=== PATIENT | female | born 1990 | race Caucasian/White ===

== ENCOUNTER 2016-08-19 09:53 | Emergency (ER) | payer OTHER ==
[~2016-08-19 09:53] MED LIST: BIRTH CONTROL PILL PO; CIPRO PO; MACROBID100 MG PO; NO MEDICATIONS; PRENATAL1 TA1 PO; TYLENOL #3 PO; VOLTAREN75 MG PO
== END 2016-08-19 11:20 | disposition home or self-care (01) ==
LOC: CED 09:53 → CFTX 10:50 → CED 10:50 → CFTX 11:20
DX: L02.214 Cutaneous abscess of groin (principal); J45.909 Unspecified asthma, uncomplicated; F41.9 Anxiety disorder, unspecified; F17.210 Nicotine dependence, cigarettes, uncomplicated
CPT/HCPCS: 10060; 99283

== ENCOUNTER 2016-11-22 13:37 | Inpatient (IN) | payer OTHER ==
[~2016-11-22] VITALS: Ht 157.5 cm; Wt 64.0 kg
--- NOTE | ~2016-11-22 | HP ---
Unit #: [id number] #: [id number] Patient: BARRINGTON ROTHMAN [id number] [facility] [address] [facility]. [place], [place] [address] [id number] MR#: [id number] NAME: BARRINGTON ROTHMAN. ROOM: 476 Age: 25 Sex: F Admission Date: 11/22/2016 : 1990 Attending Physician: Viet Hodge M.D. Primary Care Physician: No Primary Care Physician HISTORY AND PHYSICAL CHIEF COMPLAINT Facial swelling. HISTORY OF PRESENT ILLNESS The patient is a 25-year-old female who states that 4 days ago she developed some facial pain in her left jaw. It began early in the morning and then as the day progressed she developed a "pimple." She states that the pain and size increased over several days and she went to [facility], where she was started on Bactrim. She states she has had no improvement on Bactrim and thus presented to [facility] secondary to severe pain and swelling. There is associated redness but no fevers. PAST MEDICAL HISTORY The patient denies any past medical history. PAST SURGICAL HISTORY 1. Ventral hernia repair as a child. 2. . SOCIAL HISTORY The patient smokes. Denies alcohol and illicit drug use. FAMILY HISTORY The patient denies any significant family history. ALLERGIES No known drug allergies. HOME MEDICATIONS None. REVIEW OF SYSTEMS 10-point review of systems obtained and negative except with the addition of some nausea. PHYSICAL EXAMINATION GENERAL: 25-year-old female in no acute distress. Appears stated age. VITALS: Temperature 98.2, pulse 59, blood pressure 100/47. HEENT: Pupils equally round. Extraocular movements intact. (1) NECK: Supple. No jugular venous distension. No lymphadenopathy. LUNGS: Clear to auscultation bilaterally. HEART: Regular rate and rhythm. No murmurs, gallops or rubs. ABDOMEN: Nontender and nondistended. Positive bowel sounds. Unit #: [id number] #: [id number] Patient: BARRINGTNO ROTHMAN EXTREMITIES: No clubbing, cyanosis or edema. Warm and dry. NEUROLOGIC: Cranial nerves II through XII intact grossly. The patient moves all extremities equally and with purpose. MUSCULOSKELETAL: No muscle or joint pain. No muscle or joint swelling. SKIN: She has erythema and swelling of her left mandible. It is tender to touch. PSYCHIATRIC: Alert and oriented times 3. Affect is appropriate. DIAGNOSTIC STUDIES IMAGING: CT of the neck and face shows extensive cellulitic changes, but no drainage fluid collection or abscess. LABORATORY: Chemistries normal. White count is 11.8. ASSESSMENT/PLAN 1. Facial cellulitis. The patient has been admitted and started on Zyvox. 2. Prophylaxis. The patient is started on SCDs. 3. Pain. The patient has been started on 2 mg morphine IV q.4 h. p.r.n. moderate to severe pain. Dictated by Shira Ramon/jocelyne TD: 11/23/2016 14:21 JOB #: [id number] HISTORY AND PHYSICAL Page 1 of 1 X Viet Hodge MD X HISTORY AND PHYSICAL
--- NOTE | ~2016-11-22 | CT114 ---
[facility] A Service of [facility] RADIOLOGY TEXT RESULTS PATIENT: BARRINGTON ROTHMAN LOCATION: [facility] 476-01 : 89 UNIT #: [id number] AGE: [address]: Viet Hodge MD SEX: F ORDER DR: [id number] [place] [id number] [facility]. [place], [place] [address] [id number] I MR#: [id number] Acc #: [id number] NAME: BARRINGTON ROTHMAN. : 1990 SEX: F STUDY DATE/TIME: 11/22/2016 18:20 UNIT: [facility] ROOM: [facility] STUDY DESCRIPTION: CT Soft Tissue Neck W Cont Attending Physician: Viet Hodge M.D. Ordering Physician: Chery Boateng P.A.-C. Primary Care Physician: No Primary Care Physician MEDICAL IMAGING REPORT This report is preliminary unless electronic signature is present EXAM CT neck with contrast. DATE 11/22/2016 HISTORY 25-year-old female with left side facial abscess, neck pain. Symptoms began 11/18/2016. COMPARISON None. PROCEDURE 3 mm axial images through the face after IV contrast administration. Sagittal and coronal reformatted images were obtained. This CT exam was performed with one or more of the following radiation dose reduction techniques: automatic exposure control, adjustment of mA and/or kV according to patient size, and iterative reconstruction. FINDINGS Fish oil tablet was placed upon the left base at the site of the patient's complaint. There is abnormal soft tissue swelling or cellulitic change involving the left facial subcutaneous fat with associated thickening of the anterior margin of the left platysma muscle. Skin thickening is also seen in the same vicinity. However, no drainable fluid collection or focal abscess is seen. No pathologically enlarged lymph nodes are identified. Major paranasal sinuses and mastoid air cells appear clear. No acute osseous abnormality. The patient has no maxillary teeth. No definite subperiosteal abscess in the left submandibular region is identified. The bilateral parotid and submandibular glands and the thyroid gland are normal. Major vascular structures appear well opacified [facility] A Service of [facility] RADIOLOGY TEXT RESULTS PATIENT: BARRINGTON ROTHMAN LOCATION: [facility]6- : 89 UNIT #: [id number] AGE: [address]: Viet Hodge MD SEX: F ORDER DR: and patent. Included portion brain parenchyma is unremarkable. Globes within normal limits. The larynx is normal. Small amount of residual thymic tissue is present within the anterior mediastinum. Lung apices appear clear. IMPRESSION Extensive cellulitic type changes in the left facial soft tissues. There is skin thickening, subcutaneous fat induration, and inflammatory thickening of the left platysma muscle. However, no drainable fluid collection or abscess is seen. Dictated by... Tina Mccurdy M.D. THIS IS AN ELECTRONICALLY VERIFIED REPORT Tina Mccurdy M.D. at 11/23/2016 8:54 AM JAMIE/tabitha TD: 11/23/2016 02:38 JOB #: [id number] MEDICAL IMAGING REPORT Page 1 of 1 COPY
[2016-11-22 17:15] LABS: BASOPHIL# 0.1 X10e3 (0-0.3); BASOPHIL% 0.4 % (0-2.5); EOSINOPHIL# 0.2 X10e3 (0-0.7); EOSINOPHIL% 1.9 % (0.0-7.0); HEMATOCRIT 36.7 % (35.0-45.0); HEMOGLOBIN 12.2 gm/dL (12.0-16.0); LYMPHOCYTE# 2.3 X10e3 (1.0-3.5); LYMPHOCYTE% 19.8 % (17.0-45.0); MEAN CELL VOLUME 92.5 FL (83-96); MEAN CORPUSCULAR HEMOGLOBIN 30.8 PG (28-34); MEAN CORPUSCULAR HGB CONC 33.3 g/dL (30-36); MEAN PLATELET VOLUME 7.9 FL (6.5-11.5); MONOCYTE# 0.9 X10e3 (0-1.0); MONOCYTE% 7.5 % (3.0-12.0); NEUTROPHIL# 8.3 X10e3 (1.5-7.1); NEUTROPHIL% 70.4 % (40-75); PLATELET COUNT 182 X10e3 (140-420); RED BLOOD COUNT 3.97 X10e (3.90-5.30); RED CELL DISTRIBUTION WIDTH 14.2 % (11.0-15.5); WHITE BLOOD COUNT 11.8 X10e3 (4.0-10.5)
[2016-11-22 17:16] LABS: DIFF IND NO
[2016-11-22 17:33] LABS: CALCIUM SERUM 9.2 mg/dL (8.4-10.2); CREATININE SERUM 0.8 mg/dL (0.6-1.4); GLOM FILT RATE Estimated 101.8 mL/min (>60); POTASSIUM 3.8 mmol/L (3.5-5.1)
[2016-11-23 03:34] LABS: HEMATOCRIT 33.4 % (35.0-45.0); HEMOGLOBIN 11.2 gm/dL (12.0-16.0); MEAN CELL VOLUME 92.8 FL (83-96); MEAN CORPUSCULAR HEMOGLOBIN 31.1 PG (28-34); MEAN CORPUSCULAR HGB CONC 33.5 g/dL (30-36); MEAN PLATELET VOLUME 8.4 FL (6.5-11.5); RED BLOOD COUNT 3.6 X10e (3.90-5.30); RED CELL DISTRIBUTION WIDTH 14.1 % (11.0-15.5); WHITE BLOOD COUNT 9.8 X10e3 (4.0-10.5)
[2016-11-23 04:10] LABS: CALCIUM SERUM 8.6 mg/dL (8.4-10.2); CREATININE SERUM 0.8 mg/dL (0.6-1.4); GLOM FILT RATE Estimated 101.8 mL/min (>60); POTASSIUM 4.2 mmol/L (3.5-5.1)
[2016-11-24 08:58] LABS: BUN/CREATININE RATIO 11.25; CALCIUM SERUM 8.3 mg/dL (8.4-10.2); CREATININE SERUM 0.8 mg/dL (0.6-1.4); GLOM FILT RATE Estimated 101.8 mL/min (>60); POTASSIUM 4.4 mmol/L (3.5-5.1)
[2016-11-24 09:28] LABS: HEMATOCRIT 32.6 % (35.0-45.0); HEMOGLOBIN 10.8 gm/dL (12.0-16.0); MEAN CELL VOLUME 92.8 FL (83-96); MEAN CORPUSCULAR HEMOGLOBIN 30.8 PG (28-34); MEAN CORPUSCULAR HGB CONC 33.2 g/dL (30-36); MEAN PLATELET VOLUME 7.5 FL (6.5-11.5); RED BLOOD COUNT 3.51 X10e (3.90-5.30); RED CELL DISTRIBUTION WIDTH 13.7 % (11.0-15.5); WHITE BLOOD COUNT 5.8 X10e3 (4.0-10.5)
[2016-11-24] MEDS ORDERED: BACTRIM DS TAB1 EACH PO (10:15)
[2016-11-24] MEDS ORDERED: MOTRIN400 M1 PO (10:16)
[2016-11-26 19:56] LABS: HEP C AB (HEPPAN) Reactive (Nonreactive)
== END 2016-11-24 11:22 | disposition home or self-care (01) | DRG 603 ==
LOC: CED 13:37 → CFTX 13:37 → SEDOF 19:35 → CFTX 20:20 → SEDOF 20:20 → C4C 21:06 → SEDOF 21:06 → C4C 21:06
PROVIDERS: Internal Medicine; Physician Assistant
DX: L03.211 Cellulitis of face (principal); F17.210 Nicotine dependence, cigarettes, uncomplicated
CPT/HCPCS: 36415; 70491; 80048; 84703; 85025; 85027; 86803; 87040; 87522; 96365; 96367; 96375; 99285; J1200; J1885; J2020; J2270; J3370; Q9967